=== PATIENT | male | born 1990 | race Caucasian/White ===

== ENCOUNTER 2021-04-13 11:02 | Inpatient (IN) | payer OTHER ==
[~2021-04-13] VITALS: Ht 175.3 cm; Wt 81.8 kg
[2021-04-13] MEDS ORDERED: SODIUM CHLORIDE 0.9% 1,000 ML IV ONE (13:30)
[2021-04-13] MEDS ORDERED: ONDANSETRON HCL 4 MG/2 ML VIAL IVP PRN ×2 (13:30→13:45)
[2021-04-13] MEDS ORDERED: ACETAMINOPHEN 325 MG TABLET PO PRN ×2 (13:30→13:45)
[2021-04-13] MEDS ORDERED: ZOLPIDEM TARTRATE 5 MG TABLET PO PRN (13:30)
[2021-04-13] MEDS ORDERED: 0.9% SODIUM CHLORIDE 10 ML SYRINGE IVP PRN (13:45)
[2021-04-13 14:12] LABS: BASOPHILS % (AUTO) 0.2 % (0.0-2.0); EOSINOPHILS % (AUTO) 1.7 % (1.0-6.0); HEMATOCRIT 39.9 % (41-53); HEMOGLOBIN 13.6 g/dL (13.5-17.5); LYMPHOCYTES # (AUTO) 1.5 K/uL (1.0-4.8); LYMPHOCYTES % (AUTO) 31.1 % (22.0-44.0); MEAN CORPUSCULAR HEMOGLOBIN 28.5 pg (26.0-34.0); MEAN CORPUSCULAR HGB CONC 34.1 G/dL (31.0-37.0); MEAN CORPUSCULAR VOLUME 83 fL (80-100); MONOCYTES # (AUTO) 0.2 K/uL (0.1-1.0); MONOCYTES % (AUTO) 4.5 % (2.0-9.0); NEUTROPHILS # (AUTO) 3.1 K/uL (1.8-7.7); NEUTROPHILS % (AUTO) 62.5 % (40.0-70.0); PLATELET COUNT (AUTO) 218 K/uL (150-450); RED BLOOD CELL COUNT(AUTO) 4.79 MIL/uL (4.50-5.90); RED CELL DISTRIBUTION WIDTH 13.7 % (11.5-14.5)
[2021-04-13 14:39] LABS: ANION GAP 9 mmol/L (8-16); CALCIUM, TOTAL 9.8 mg/dL (8.8-10.5); CARBON DIOXIDE 29 mmol/L (22-29); CHLORIDE 102 mmol/L (98-107); GLOMERULAR FILTR. RATE CALC > 60 mL/min (>60); GLUCOSE,RANDOM 95 mg/dL (70-110); POTASSIUM 3.9 mmol/L (3.5-5.1); SODIUM SERUM 140 mmol/L (136-145); UREA NITROGEN, BLOOD 14 mg/dL (7-18)
[2021-04-13 14:41] LABS: COVID AG,FIA SOURCE NASOPHARYNGEAL
[2021-04-13 14:50] LABS: ALANINE AMINOTRANSFERASE 22 U/L (12-78); ALBUMIN 4.3 g/dL (3.4-5.0); ALKALINE PHOSPHATASE 57 U/L (46-116); ASPARTATE AMINOTRANSFERASE 14 U/L (15-37); BILIRUBIN,TOTAL 1.2 mg/dL (0.1-1.0); CREATINE KINASE, TOTAL ONLY 73 U/L (39-308); TOTAL PROTEIN, SERUM 7.9 g/dL (6.4-8.2)
[2021-04-13 15:13] LABS: APPEARANCE,URINE CLOUDY (CLEAR); BILIRUBIN,URINE NEGATIVE (NEGATIVE); GLUCOSE, URINE (UA) NEGATIVE (NEGATIVE); KETONES,URINE NEGATIVE (NEGATIVE); LEUKOCYTE ESTERASE ,URINE NEGATIVE (NEGATIVE); NITRATE,URINE NEGATIVE (NEGATIVE); OCCULT BLOOD,URINE NEGATIVE (NEGATIVE); PROTEIN,URINE NEGATIVE (NEGATIVE); UROBILINOGEN,URINE 0.2 mg/dL (<=1.0)
[2021-04-13 15:20] LABS: AMPHET/METH SCREEN,URINE POSITIVE (NEGATIVE); BARBITURATE SCREEN, URINE NEGATIVE (NEGATIVE); BENZODIAZEPINES SCREEN,URINE NEGATIVE (NEGATIVE); CANNABINOID SCREEN,URINE POSITIVE (NEGATIVE); COCAINE SCREEN,URINE POSITIVE (NEGATIVE); METHADONE SCREEN, URINE NEGATIVE (NEGATIVE); OPIATE SCREEN,URINE NEGATIVE (NEGATIVE); PHENCYCLIDINE SCREEN,URINE NEGATIVE (NEGATIVE)
[2021-04-13 15:39] LABS: BACTERIA,URINE None Seen /HPF (None Seen); RBC,URINE None Seen /HPF (0-2); SQUAMOUS EPITHELIAL CELL,UR Few /LPF (None Seen); WBC,URINE None Seen /HPF (0-5)
[2021-04-13 15:40] LABS: AMORPHOUS SEDIMENT,UR Moderate /LPF (None Seen)
[2021-04-13 15:54] VITALS: BP 123/70
[2021-04-13] MEDS: MAGNESIUM HYDROXIDE SUSPENSION 30 ML UDCUP PO PRN (17:06)
[2021-04-13] MEDS: LORazepam 2 MG/ML VIAL IVP PRN (17:14)
[2021-04-13 20:00] VITALS: BP 116/61
[2021-04-13] MEDS: FAMOTIDINE 20 MG TABLET PO SCH (20:05)
[2021-04-14] VITALS (8 sets, daily range): BP systolic 117–141; BP diastolic 63–86
[2021-04-14] MEDS: FAMOTIDINE 20 MG TABLET PO SCH ×2 (08:30→20:02)
[2021-04-14] MEDS: LORazepam 2 MG/ML VIAL IVP PRN ×3 (11:20→20:04)
[2021-04-14] MEDS: MAGNESIUM HYDROXIDE SUSPENSION 30 ML UDCUP PO PRN (11:20)
[2021-04-14] MEDS ORDERED: BISACODYL 10 MG RECTAL RECTAL SUPPOSITORY PR PRN (15:00)
[2021-04-14] MEDS ORDERED: LACTULOSE 20 GM/30 ML SOLUTION UDCUP PO PRN (15:00)
[2021-04-15 04:45] VITALS: BP 121/87
[2021-04-15] MEDS: FAMOTIDINE 20 MG TABLET PO SCH ×2 (07:47→20:05)
[2021-04-15 07:59] VITALS: BP 134/76
[2021-04-15] MEDS: LORazepam 2 MG/ML VIAL IVP PRN (11:09)
[2021-04-15 13:23] VITALS: BP 129/80
[2021-04-15] MEDS ORDERED: PROMETHAZINE HCL 25 MG TABLET PO PRN (13:30)
[2021-04-15] MEDS ORDERED: IBUPROFEN 600 MG TABLET PO PRN (13:30)
[2021-04-15] MEDS ORDERED: LORazepam 1 MG TABLET PO PRN (13:30)
[2021-04-15] MEDS ORDERED: DICYCLOMINE HCL 10 MG CAPSULE PO PRN (13:30)
[2021-04-15] MEDS ORDERED: LOPERAMIDE HCL 2 MG/15 ML SUSPENSION UDCUP PO PRN (13:30)
[2021-04-15] MEDS ORDERED: MAG HYDROX/AL HYDROX/SIMETH ES 30 ML SUSPENSION UDCUP PO PRN (13:30)
[2021-04-15] MEDS ORDERED: ACETAMINOPHEN 325 MG TABLET PO PRN (13:30)
[2021-04-15] MEDS ORDERED: HydrOXYzine PAMOATE 50 MG CAPSULE PO PRN (13:30)
[2021-04-15] MEDS ORDERED: CloNIDine HCL 0.1 MG TABLET PO PRN (13:30)
[2021-04-15] MEDS ORDERED: TraZODone HCL 50 MG TABLET PO PRN (13:30)
[2021-04-15] MEDS ORDERED: BACLOFEN 10 MG TABLET PO PRN (13:30)
[2021-04-15 15:39] VITALS: BP 132/81
[2021-04-15 19:22] VITALS: BP 136/78
[2021-04-15 23:42] VITALS: BP 133/92
[2021-04-16 04:59] VITALS: BP 124/78
[2021-04-16 07:03] VITALS: BP 129/80
[2021-04-16] MEDS: FAMOTIDINE 20 MG TABLET PO SCH ×2 (08:33→20:40)
[2021-04-16 11:17] VITALS: BP 118/77
[2021-04-16 17:24] VITALS: BP 120/72
[2021-04-16 19:35] VITALS: BP 131/78
[2021-04-17 04:30] VITALS: BP 121/58
[2021-04-17 07:04] LABS: ALANINE AMINOTRANSFERASE 22 U/L (12-78); ALBUMIN 3.6 g/dL (3.4-5.0); ALKALINE PHOSPHATASE 47 U/L (46-116); ANION GAP 8 mmol/L (8-16); ASPARTATE AMINOTRANSFERASE 17 U/L (15-37); BILIRUBIN,TOTAL 0.2 mg/dL (0.1-1.0); CALCIUM, TOTAL 8.9 mg/dL (8.8-10.5); CARBON DIOXIDE 26 mmol/L (22-29); CHLORIDE 105 mmol/L (98-107); CREATININE 0.84 mg/dL (0.60-1.30); GLOMERULAR FILTR. RATE CALC > 60 mL/min (>60); GLUCOSE,RANDOM 96 mg/dL (70-110); POTASSIUM 4.4 mmol/L (3.5-5.1); SODIUM SERUM 139 mmol/L (136-145); TOTAL PROTEIN, SERUM 7.3 g/dL (6.4-8.2); UREA NITROGEN, BLOOD 17 mg/dL (7-18)
[2021-04-17] MEDS: FAMOTIDINE 20 MG TABLET PO SCH ×2 (08:16→20:00)
[2021-04-17 08:43] VITALS: BP 139/84
[2021-04-17 12:37] VITALS: BP 128/86
[2021-04-17 17:00] VITALS: BP 136/82
[2021-04-17 20:01] VITALS: BP 120/81
[2021-04-18 04:11] VITALS: BP 110/64
== END 2021-04-18 07:03 | DRG 897 ==
LOC: EMS 11:02 → 6S 14:23
PROVIDERS: ADMIT Internal Medicine; ATTEND Internal Medicine
DX: F19.10 Other psychoactive substance abuse, uncomplicated (principal); Z20.822 Contact with and (suspected) exposure to COVID-19; F11.90 Opioid use, unspecified, uncomplicated; F41.9 Anxiety disorder, unspecified
CPT/HCPCS: 80053; 81001; 82550; 85025; 87426; 99285; G0480; J2060; J2405; J7030